=== PATIENT | male | born 1995 | race Caucasian/White ===

== ENCOUNTER 2020-02-07 11:42 | Emergency (ER) | payer SELFPAY ==
[~2020-02-07] VITALS: Ht 167.7 cm; Wt 72.5 kg
[~2020-02-07 11:42] MED LIST: AMOX500C2 PO; MECL-149 PO; OMEP20CA18; ONDA4TAB8 PO
--- NOTE | 2020-02-07 12:21 | ED Abdominal Pain ---
General Chief Complaint: Abdominal/GI Problems Stated Complaint: NAUSEA,VOMITING,ABD PAIN Nursing Triage Note: Pt reports epigastric pain that is worse with caffeine, meals and lifting. Pt reports nausea and vomiting of acid. Pt reports the pain causes gagging and is worse when lifiting heavy items. Sepsis Screen: No Definite Risk History of Present Illness Date Seen by Provider: Feb 07, 2020 Time Seen by Provider: 12:05 Initial Comments This is a well-appearing 24-year-old male who presents to the ER with complaints of epigastric pain times one week. Currently rates 6/10, constan, sharp, and is localized to his epigastric region. States occasionally after eating he will have a burning sensation in his throat. Denies any alleviating factors. Worse when he bends over. No OTC or prescription medications. Denies fevers, chills, cough, shortness of breath, chest pain, nausea, vomiting, diarrhea. Timing/Duration: 1 Week Severity/Quality: Moderate Location: Epigastric Radiation: No Radiation Activities at Onset: None Allergies and Home Medications Allergies Coded Allergies: No Known Drug Allergies (Unverified , 09/03/15) Home Medications Amoxicillin 500 Mg Capsule, 1,000 MG PO TID Prescribed by: ROMELIA FELDMAN on 09/06/15 1439 Famotidine 20 Mg Tablet, 20 MG PO BID Prescribed by: POLINA SANDHU on 02/07/20 1328 Meclizine HCl 25 Mg Tablet, 25 MG PO for DIZZINESS, (Reported) Patient Home Medication List Home Medication List Reviewed: Yes Review of Systems Review of Systems Constitutional: no symptoms reported EENTM: No Symptoms Reported Respiratory: No Symptoms Reported Cardiovascular: No Symptoms Reported Gastrointestinal: See HPI Genitourinary: No Symptoms Reported Musculoskeletal: no symptoms reported Skin: no symptoms reported Psychiatric/Neurological: No Symptoms Reported Endocrine: No Symptoms Reported Hematologic/Lymphatic: No Symptoms Reported Past Gariwxn-Zhwdmi-Hfczgz Hx Patient Social History Alcohol Use: Occasionally Uses Recreational Drug Use: No 2nd Hand Smoke Exposure: No Recent Foreign Travel: No Contact w/Someone Who Travel: No Recent Infectious Disease Expo: No Recent Hopitalizations: No Immunizations Up To Date Tetanus Booster (TDap): More than 5yrs PED Vaccines UTD: No Seasonal Allergies Seasonal Allergies: No Past Medical History Surgeries: No Respiratory: No Cardiac: No Neurological: No Reproductive Disorders: No Gastrointestinal: No Musculoskeletal: No Endocrine: No Cancer: No Psychosocial: No Integumentary: No Blood Disorders: No Adverse Reaction/Blood Tranf: No Family Medical History No Pertinent Family Hx Physical Exam Vital Signs Vital Signs - First Documented 02/07/20 11:48 Temp 36.7 Pulse 85 Resp 10 B/P (MAP) 127/77 (94) Pulse Ox 97 O2 Delivery Room Air Capillary Refill : Less Than 3 Seconds Height/Weight/BMI Height: 5'4" Weight: 150lbs. oz. 68.178547ts; 25.00 BMI Method:Estimated General Appearance: WD/WN, no apparent distress HEENT: normal ENT inspection, pharynx normal Neck: full range of motion, normal inspection Respiratory: lungs clear, normal breath sounds Cardiovascular: regular rate, rhythm, no murmur Gastrointestinal: normal bowel sounds, soft, guarding, other (tenderness in epigastric region with light/deep palpation ) Extremities: normal range of motion, non-tender, normal inspection Back: normal inspection Neurologic/Psychiatric: no motor/sensory deficits, alert, normal mood/affect, oriented x 3 Skin: normal color, warm/dry Progress/Results/Core Measures Results/Orders Lab Results Laboratory Tests Test 02/07/20 12:32 02/07/20 12:35 Range/Units Urine Color YELLOW Urine Clarity CLEAR Urine pH 7.0 5-9 Urine Specific [place] 1.015 L 1.016-1.022 Urine Protein NEGATIVE NEGATIVE Urine Glucose (UA) NEGATIVE NEGATIVE Urine Ketones NEGATIVE NEGATIVE Urine Nitrite NEGATIVE NEGATIVE Urine Bilirubin NEGATIVE NEGATIVE Urine Urobilinogen 0.2 < = 1.0 MG/DL Urine Leukocyte Esterase NEGATIVE NEGATIVE Urine RBC (Auto) NEGATIVE NEGATIVE Urine RBC NONE /HPF Urine WBC 2-5 /HPF Urine Squamous Epithelial Cells NONE /HPF Urine Crystals NONE /LPF Urine Bacteria TRACE /HPF Urine Casts NONE /LPF Urine Mucus MODERATE H /LPF Urine Culture Indicated NO White Blood Count 6.0 4.3-11.0 10^3/uL Red Blood Count 5.57 H 4.30-5.52 10^6/uL Hemoglobin 17.8 H 13.3-17.7 g/dL Hematocrit 50 40-54 % Mean Corpuscular Volume 89 80-99 fL Mean Corpuscular Hemoglobin 32 25-34 pg Mean Corpuscular Hemoglobin Concent 36 32-36 g/dL Red Cell Distribution Width 11.6 10.0-14.5 % Platelet Count 282 130-400 10^3/uL Mean Platelet Volume 9.1 9.0-12.2 fL Immature Granulocyte % (Auto) 1 % Neutrophils (%) (Auto) 64 42-75 % Lymphocytes (%) (Auto) 25 12-44 % Monocytes (%) (Auto) 9 0-12 % Eosinophils (%) (Auto) 1 0-10 % Basophils (%) (Auto) 0 0-10 % Neutrophils # (Auto) 3.8 1.8-7.8 10^3/uL Lymphocytes # (Auto) 1.5 1.0-4.0 10^3/uL Monocytes # (Auto) 0.5 0.0-1.0 10^3/uL Eosinophils # (Auto) 0.1 0.0-0.3 10^3/uL Basophils # (Auto) 0.0 0.0-0.1 10^3/uL Immature Granulocyte # (Auto) 0.0 0.0-0.1 10^3/uL Sodium Level 138 135-145 MMOL/L Potassium Level 3.5 L 3.6-5.0 MMOL/L Chloride Level 101 98-107 MMOL/L Carbon Dioxide Level 33 H 21-32 MMOL/L Anion Gap 4 L 5-14 MMOL/L Blood Urea Nitrogen 12 7-18 MG/DL Creatinine 0.82 0.60-1.30 MG/DL Estimat Glomerular Filtration Rate > 60 BUN/Creatinine Ratio 15 Glucose Level 98 70-105 MG/DL Calcium Level 9.4 8.5-10.1 MG/DL Corrected Calcium 8.5-10.1 MG/DL Total Bilirubin 1.3 H 0.1-1.0 MG/DL Aspartate Amino Transf (AST/SGOT) 31 5-34 U/L Alanine Aminotransferase (ALT/SGPT) 52 0-55 U/L Alkaline Phosphatase 99 40-136 U/L Troponin I < 0.028 <0.028 NG/ML Total Protein 7.6 6.4-8.2 GM/DL Albumin 4.8 H 3.2-4.5 GM/DL Lipase 24 8-78 U/L My Orders Orders - POLINA SANDHU FINANCIAL REPORTING ANALYST Cbc With Automated Diff (02/07/20 12:23) Chest 1 View, Ap/Pa Only (02/07/20 12:23) Ekg Tracing (02/07/20 12:23) Comprehensive Metabolic Panel (02/07/20 12:23) Lipase (02/07/20 12:23) Troponin I (02/07/20 12:23) Ua Culture If Indicated (02/07/20 12:23) Lidocaine 2% Viscous 15 Ml (Xylocaine Vi (02/07/20 13:30) Antacid Suspension (Mylanta Suspension (02/07/20 13:30) Medications Given in ED Current Medications Medications Dose Ordered Sig/Kasie Route Start Time Stop Time Status Last Admin Dose Admin Al Hydrox/Mg Hydrox/Simethicone 30 ml ONCE ONCE PO 02/07/20 13:30 02/07/20 13:31 DC 02/07/20 13:31 30 ML Lidocaine HCl 15 ml ONCE ONCE PO 02/07/20 13:30 02/07/20 13:31 DC 02/07/20 13:31 15 ML Vital Signs/I&O 02/07/20 02/07/20 11:48 14:12 Temp 36.7 36.7 Pulse 85 70 Resp 10 10 B/P (MAP) 127/77 (94) 112/66 (94) Pulse Ox 97 97 O2 Delivery Room Air Room Air Blood Pressure Mean: 94 Progress Progress Note : Progress Note Cardiac workup negative. Chest x-ray shows no acute diagnosis. Given GI cocktail which improved symptoms. Reviewed discharge plan of care and he is agreeable with plan. Initial ECG Impression Date: Feb 07, 2020 Initial ECG Impression Time: 12:23 Initial ECG Rate: 72 Initial ECG Rhythm: Normal Sinus Initial ECG Intervals: Normal Initial ECG Impression: Normal Diagnostic Imaging Diagonstic Imaging: Xray Plain Films/CT/US/NM/MRI: chest Comments NAME: ZANDRA DRAKE [facility] REC#: [id number] PT STATUS: REG ER : 1995 PHYSICIAN: POLINA SANDHU APRN ADMIT DATE: 02/07/20/ER Draft Date of Exam:02/07/20 CHEST 1 VIEW, AP/PA ONLY Clinical indication: Patient epigastric pain which is worse with caffeine, meals, and lifting. Exam: Portable chest x-ray upright view. Comparisons: None. Findings: Lungs/pleura: Lungs are clear. There is no pneumothorax. There is no pleural effusion. Mediastinum: Unremarkable. Pulmonary vasculature: Unremarkable. Heart: Unremarkable. Bones/extrathoracic soft tissue: Unremarkable. Impression: There is no radiographic evidence of acute cardiopulmonary process. Dictated on workstation # [id number] Dict: 02/07/20 1301 Trans: 02/07/20 1303 [id number] Interpreted by: ANN SCHUMACHER MD Electronically signed by: Departure Impression Primary Impression: Abdominal pain Disposition: HOME, SELF-CARE Condition: Improved Departure-Patient Inst. Decision time for Depature: 13:20 Referrals: NO,LOCAL PHYSICIAN (PCP/Family) Primary Care Physician Patient Instructions: Gastritis (DC) Add. Discharge Instructions: Plan: 1. Discharge home. 2. Take Famotidine 20mg by mouth for two weeks. 3. Establish with a primary care provider as soon as you are able. 4. Return high fevers, persistent pain or any other new or concerning symptoms. All discharge instructions reviewed with patient and/or family. Voiced understanding. Scripts Famotidine (Pepcid) 20 Mg Tablet 20 MG PO BID for 14 Days, #30 TAB 0 Refills Prov: POLINA SANDHU FINANCIAL REPORTING ANALYST 02/07/20 POLINA SANDHU FINANCIAL REPORTING ANALYST Feb 07, 2020 12:21
[2020-02-07 12:40] LABS: BILIRUBIN,URINE NEGATIVE (NEGATIVE); CLARITY,URINE CLEAR; COLOR,URINE YELLOW; GLUCOSE, URINE (UA) NEGATIVE (NEGATIVE); KETONES,URINE NEGATIVE (NEGATIVE); LEUKOCYTE ESTERASE ,URINE NEGATIVE (NEGATIVE); NITRITE,URINE NEGATIVE (NEGATIVE); PROTEIN,URINE NEGATIVE (NEGATIVE)
[2020-02-07 12:47] LABS: BASOPHILS % (AUTO) 0 % (0-10); EOSINOPHILS # (AUTO) 0.1 10^3/uL (0.0-0.3); EOSINOPHILS % (AUTO) 1 % (0-10); HEMATOCRIT 50 % (40-54); HEMOGLOBIN 17.8 g/dL (13.3-17.7); LYMPHOCYTES # (AUTO) 1.5 10^3/uL (1.0-4.0); LYMPHOCYTES % (AUTO) 25 % (12-44); MEAN CORPUSCULAR HEMOGLOBIN 32 pg (25-34); MEAN CORPUSCULAR HGB CONC 36 g/dL (32-36); MEAN CORPUSCULAR VOLUME 89 fL (80-99); MEAN PLATELET VOLUME 9.1 fL (9.0-12.2); MONOCYTES # (AUTO) 0.5 10^3/uL (0.0-1.0); MONOCYTES % (AUTO) 9 % (0-12); NEUTROPHILS # (AUTO) 3.8 10^3/uL (1.8-7.8); NEUTROPHILS % (AUTO) 64 % (42-75); PLATELET COUNT 282 10^3/uL (130-400)
[2020-02-07 12:51] LABS: BACTERIA,URINE TRACE /HPF
--- NOTE | 2020-02-07 13:03 | Diagnostic Imaging Report ---
Clinical indication: Patient epigastric pain which is worse with caffeine, meals, and lifting. Exam: Portable chest x-ray upright view. Comparisons: None. Findings: Lungs/pleura: Lungs are clear. There is no pneumothorax. There is no pleural effusion. Mediastinum: Unremarkable. Pulmonary vasculature: Unremarkable. Heart: Unremarkable. Bones/extrathoracic soft tissue: Unremarkable. Impression: There is no radiographic evidence of acute cardiopulmonary process. Dictated by: Dictated on workstation # [id number]
[2020-02-07 13:17] LABS: ALANINE AMINOTRANSFERASE 52 U/L (0-55); ALBUMIN 4.8 GM/DL (3.2-4.5); ALKALINE PHOSPHATASE 99 U/L (40-136); BILIRUBIN,TOTAL 1.3 MG/DL (0.1-1.0); BUN/CREATININE RATIO 15; CALCIUM 9.4 MG/DL (8.5-10.1); CARBON DIOXIDE 33 MMOL/L (21-32); CHLORIDE 101 MMOL/L (98-107); CREATININE SERUM 0.82 MG/DL (0.60-1.30); GFR ESTIMATED > 60; GLUCOSE 98 MG/DL (70-105); LIPASE 24 U/L (8-78); POTASSIUM 3.5 MMOL/L (3.6-5.0); SODIUM 138 MMOL/L (135-145); TOTAL PROTEIN 7.6 GM/DL (6.4-8.2)
[2020-02-07] MEDS ORDERED: FAMO-119 PO (13:28)
[2020-02-07] MEDS ORDERED: ANTACID SUSP 30 ML UDC (MYLANTA) PO ONE (13:30)
[2020-02-07] MEDS ORDERED: LIDOCAINE 2% VISCOUS 15 ML UDC PO ONE (13:30)
[2020-02-07 14:12] VITALS: BP 112/66
== END 2020-02-07 14:12 | disposition home or self-care (01) ==
LOC: EDUNIT# 11:42 → ER 11:45
DX: R10.13 Epigastric pain (principal)
CPT/HCPCS: 36415; 71045; 80053; 81000; 83690; 84484; 85025; 93005

== ENCOUNTER 2022-01-15 09:12 | Emergency (ER) | payer BC ==
[~2022-01-15] VITALS: Ht 165 cm; Wt 74.8 kg
[~2022-01-15 09:12] MED LIST changes: +FAMO-119 PO
[2022-01-15] MEDS ORDERED: MECLIZINE 25 MG (ANTIVERT) TAB PO ONE (12:00)
[2022-01-15] MEDS ORDERED: MECL-149 PO (12:18)
--- NOTE | 2022-01-15 12:18 | ED EENT ---
History of Present Illness General Chief Complaint: Ear Problems Stated Complaint: DIZZINESS Nursing Triage Note: LEFT EAR PAIN AND DIZZINESS STARTED LAST NIGHT Source: patient Exam Limitations: no limitations History of Present Illness Date Seen by Provider: Jan 15, 2022 Time Seen by Provider: 11:19 Allergies and Home Medications Allergies Coded Allergies: No Known Drug Allergies (Unverified , 01/15/22) Patient Home Medication List Amoxicillin (Amoxicillin) 500 Mg Capsule, 1,000 MG PO TID Prescribed by: ROMELIA FELDMAN on 09/06/15 1439 Famotidine (Pepcid) 20 Mg Tablet, 20 MG PO BID Prescribed by: POLINA SANDHU on 02/07/20 1328 Meclizine HCl (Meclizine HCl) 25 Mg Tablet, 25 MG PO for DIZZINESS, (Reported) Entered as Reported by: ENMA RAMIREZ on 09/06/15 1251 Meclizine HCl (Meclizine HCl) 25 Mg Tablet, 25 MG PO BID PRN Prescribed by: POLINA SANDHU on 01/15/22 1218 Past Cceobaq-Rjyjmh-Qwoumd Hx Patient Social History Tobacco Use?: No Use of E-Cig and/or Vaping dev: No Substance use?: No Alcohol Use?: No Pt feels they are or have been: No Immunizations Up To Date Tetanus Booster (TDap): More than 5yrs PED Vaccines UTD: No Influenza Vaccine Up-to-Date: No; Not Current First/Initial COVID19 Vaccinat: NO VAC Seasonal Allergies Seasonal Allergies: No Past Medical History Surgery/Hospitalization HX: DENIES Surgeries: No Respiratory: No Cardiac: No Neurological: No Reproductive Disorders: No Gastrointestinal: No Musculoskeletal: No Endocrine: No Cancer: No Psychosocial: No Integumentary: No Blood Disorders: No Adverse Reaction/Blood Tranf: No Family Medical History No Pertinent Family Hx Physical Exam Vital Signs Vital Signs - First Documented 01/15/22 09:32 Temp 36.5 Pulse 75 Resp 18 B/P (MAP) 116/73 (87) Pulse Ox 97 O2 Delivery Room Air Height, Weight, BMI Height: 5'4" Weight: 150lbs. oz. 68.145552ys; 27.00 BMI Method:Estimated Progress/Results/Core Measures Results/Orders My Orders Orders - POLINA SANDHU INTERNAL SALES ENGINEER Meclizine Tablet (Antivert Tablet) (01/15/22 12:00) Medications Given in ED Current Medications Medications Dose Ordered Sig/Kasie Route Start Time Stop Time Status Last Admin Dose Admin Meclizine HCl 25 mg ONCE ONCE PO 01/15/22 12:00 01/15/22 12:01 DC 01/15/22 12:11 25 MG Vital Signs/I&O 01/15/22 09:32 Temp 36.5 Pulse 75 Resp 18 B/P (MAP) 116/73 (87) Pulse Ox 97 O2 Delivery Room Air Blood Pressure Mean: 87 Departure Impression Primary Impression: BPPV (benign paroxysmal positional vertigo) Disposition: HOME, SELF-CARE Condition: Improved Departure-Patient Inst. Decision time for Depature: 12:12 Referrals: LY SELLERS MD, BRETT D DO NO,LOCAL PHYSICIAN (PCP) Primary Care Physician Patient Instructions: Vertigo ED Add. Discharge Instructions: Plan: 1. May take Meclizine up to twice a day as needed, morning and night. May cause drowsiness. 2. Follow up with Dr. Israel regarding your stomach ulcer. Information below. 3. It might not be easy but you should try to keep your head vertical for as lo ng as you can. Avoid exercises or activities that make you bend your neck or tilt your head. Stand right under the shower when taking a bath to avoid tilting your head back. Never let your head tilt back more than 30 degrees. 4. Do not sleep below 45 degrees for 24 hours. 5. Follow up with ENT Dr. Sellers if your symptoms persist. 6. Establish with primary care provider of your choice. 7. Return for any new, concerning, or worsening symptoms. All discharge instructions reviewed with patient and/or family. Voiced understanding. Scripts Meclizine HCl (Meclizine HCl) 25 Mg Tablet 25 MG PO BID PRN, #20 TAB Prov: POLINA SANDHU INTERNAL SALES ENGINEER 01/15/22 Work/School Note: Family Work Note, Patient Received Medical Care In the Emergency Department On: Jan 15, 2022 Patient Will Be Able to Return to Work/School On: Jan 17, 2022 Patient Restrictions: May return if dizziness is resolved. Spouse was present with patient in ED. Work Release Form Date Seen in the Emergency Department: Jan 15, 2022 Return to Work: Jan 17, 2022 Other Restrictions Listed Below: No dizziness for 24 hours. POLINA SANDHU INTERNAL SALES ENGINEER Jan 15, 2022 12:18
[2022-01-15 12:41] VITALS: BP 118/74
== END 2022-01-15 12:41 | disposition home or self-care (01) ==
LOC: EDUNIT# 09:12 → ER 09:17
DX: H81.12 Benign paroxysmal vertigo, left ear (principal); Z28.310 Unvaccinated for COVID-19
CPT/HCPCS: 99283

== ENCOUNTER 2022-01-23 05:34 | Outpatient (CLI) | payer BC ==
[~2022-01-23] VITALS: Ht 165.1 cm; Wt 74.8 kg
== END 2022-01-23 12:19 ==
LOC: PREOP 05:34
PROVIDERS: ATTEND Surgery
DX: Z01.818 Encounter for other preprocedural examination (principal); K21.9 Gastro-esophageal reflux disease without esophagitis

== ENCOUNTER 2022-02-05 07:16 | Day surgery (SDC) | payer BC ==
[~2022-02-05] VITALS: Ht 165.1 cm; Wt 74.8 kg
[2022-02-05] MEDS ORDERED: LACTATED RINGERS 1,000 ML IV STA (07:18)
[2022-02-05] MEDS ORDERED: HURRICAINE EXT TUBE (BENZOCAINE) XX PRN (07:30)
[2022-02-05 07:34] VITALS: BP 125/79
[2022-02-05] MEDS ORDERED: PROPOFOL INJECTION 50 ML IV ONE (07:37)
--- NOTE | 2022-02-05 07:48 | Progress Note-Pre Operative ---
Pre-Operative Progress Note Date of Available H&P: Jan 20, 2022 Date H&P Reviewed: Feb 05, 2022 Time H&P Reviewed: 07:48 History & Physical: H&P Reviewed, Patient Examed, No changes noted Pre-Operative Diagnosis: GERD, epigastric pain AURA MEEKS DO Feb 05, 2022 07:48
--- NOTE | 2022-02-05 07:58 | Anesthesia-General Post-Op ---
MAC Patient Condition Mental Status/LOC: Same as Preop Cardiovascular: Satisfactory Nausea/Vomiting: Absent Respiratory: Satisfactory Pain: Controlled Complications: Absent Post Op Complications Complications None Follow Up Care/Instructions Patient Instructions None needed. Anesthesiology Discharge Order Discharge Order Patient is doing well, no complaints, stable vital signs, no apparent adverse anesthesia problems. No complications reported per nursing. OPHELIA BURKETT CRNA Feb 05, 2022 07:58
[2022-02-05 08:00] VITALS: BP 92/50
[2022-02-05 08:05] VITALS: BP 96/54
[2022-02-05 08:15] VITALS: BP 99/55
[2022-02-05 08:30] VITALS: BP 101/60
[2022-02-05] MEDS ORDERED: PANT40TA2 PO (08:30)
--- NOTE | 2022-02-05 08:31 | Discharge Inst-Simple/Standard ---
Discharge Inst-Standard Discharge Medications New, Converted or Re-Newed RX: Transmitted to Pharmacy Patient Instructions/Follow Up Plan of Care/Instructions/FU: 2 WEEKS CONSTANTINO Activity as Tolerated: Yes Discharge Diet: Regular Diet AURA MEEKS DO Feb 05, 2022 08:31
[2022-02-05 09:11] VITALS: BP 101/60
--- NOTE | 2022-02-06 11:21 | OPERATIVE REPORT ---
DATE OF SERVICE: 02/05/2022 PREOPERATIVE DIAGNOSES: Gastroesophageal reflux disease, epigastric abdominal pain. POSTOPERATIVE DIAGNOSIS: Gastritis. PROCEDURE: EGD with biopsy. SURGEON: Aura Israel DO ANESTHESIA: Per OYSTER CULTURIST. ESTIMATED BLOOD LOSS: None. COMPLICATIONS: None. INDICATIONS: The patient is a 26-year-old male with GERD, epigastric abdominal pain. He understands risks and benefits of procedure and wishes to proceed. Consent was signed and on the chart. DESCRIPTION OF PROCEDURE: The patient was taken to the endoscopy suite, placed in left lateral recumbent position. Timeout was performed. Scope was inserted in the mouth, down the esophagus, stomach and into the duodenum without difficulty. There were no polyps, masses, ulcerations within the duodenum. Scope was slowly retracted back into the stomach, where it was further insufflated. Antral and body of the stomach had inflammatory changes. Biopsies of the antrum and body were obtained. Scope was retroflexed noting no other pathology. Scope was returned to its normal position and slowly withdrawn to distal esophagus, biopsy of the GE junction was obtained. No polyps, mass, or ulcerations. Scope was slowly retracted back until completely removed. The patient tolerated the procedure well without any complications. Patient will be started on Protonix 40 mg daily. He will follow up on biopsy in a couple of weeks. Any issues before that will be seen at that time. Further recommendations pending results. Job ID: [id number] DocumentID: [id number] Dictated Date: 02/05/2022 19:33:04 Electric Motorman Date: 02/06/2022 04:47:00 Dictated By: AURA ISRAEL DO
== END 2022-02-05 09:30 | disposition home or self-care (01) ==
LOC: ENDO 07:16
PROVIDERS: ATTEND Surgery
DX: K29.50 Unspecified chronic gastritis without bleeding (principal); K21.9 Gastro-esophageal reflux disease without esophagitis; Z28.310 Unvaccinated for COVID-19
CPT/HCPCS: 88305

== ENCOUNTER → 2022-04-07 | Outpatient (CLI) | payer BC ==
[~2022-04-07] MED LIST changes: +PANT40TA2 PO
== END ==
LOC: LAB 18:18
DX: A04.8 Other specified bacterial intestinal infections (principal)
CPT/HCPCS: 87338

== ENCOUNTER 2022-06-19 17:25 | Emergency (ER) | payer SELFPAY ==
[~2022-06-19] VITALS: Ht 165 cm; Wt 97.0 kg
[2022-06-19] MEDS ORDERED: FAMOTIDINE 20MG/2ML IV (PEPCID) IV STA (17:53)
[2022-06-19] MEDS ORDERED: diphenhydrAMINE 50 MG/ML INJ (BENADRYL) IVP ONE (18:00)
--- NOTE | 2022-06-19 18:01 | ED Integumentary General ---
General Chief Complaint: Allergic Reaction Stated Complaint: RASH/ALLERGIC REACTION Nursing Triage Note: PT HAS HAD DIARRHEA, PT TOOK A [place] DRUG CALLED [facility] FOR THE DIARRHEA AND DEVELOPED A RASH LATER. PT STATES HE ATE [facility] TODAY ALSO AND HAS HAD A COUGH SINCE. THIS HAS HAPPENED BEFORE WITH [facility]. Source: patient History of Present Illness Date Seen by Provider: June 19, 2022 Time Seen by Provider: 17:47 Initial Comments PT ARRIVES VIA POV C/O ITCHY RASH ALL OVER HIS BODY SINCE THIS MORNING NO SWELLING ANYWHERE NO DIFFICULTY TALKING OR SWALLOWING OR BREATHING. NO HISTORY OF SIMILAR PT STATES HE HAD A "STOMACH PROBLEM" ON THURSDAY--DIARRHEA AND ABDOMINAL CRAMPING. HE DENIES NAUSEA/VOMITING HE WENT TO [facility] ON THURSDAY OR THURSDAY AND WAS GIVEN RX FOR ZOFRAN PT STATES HE DID NOT TAKE ANY BECAUSE HE WAS NOT HAVING NAUSEA OR VOMITING HE TOOK LOPERAMIDE YESTERDAY MORNING--HAS TAKEN BEFORE WITHOUT PROBLEMS HE THEN TOOK MEDICATION FROM [facility]--GENERIC BACTRIM--HE TOOK 1 DOSE AT 0300 THIS MORNING--HE HAS TAKEN THAT BEFORE WITHOUT PROBLEMS. HE DID NOTICE LATER THAT THE MEDICATION 01/2022 HE ALSO ATE [facility] LAST NIGHT, AND AFTERWARDS HE HAD A SCRATCHY THROAT AND COUGH AND VOMITED--THIS WAS BEFORE HE TOOK THE BACTRIM HE STATES HE HAS HAD THOSE SAME SYMPTOMS BEFORE WHEN HE HAS EATEN [facility]. HE STILL HAS A SCRATCHY THROAT AND A SLIGHT COUGH HE IS NO LONGER HAVING THE GI ISSUES. HE HAS NOT TAKEN ANYTHING TODAY FOR HIS SYMPTOMS. HE DENIES ANY MEDICAL PROBLEMS AND DOES NOT TAKE ANY DAILY MEDICATIONS PCP: [facility] Allergies and Home Medications Allergies Coded Allergies: No Known Drug Allergies (Unverified , 01/15/22) Patient Home Medication List Home Medication List Reviewed: Yes Famotidine (Pepcid) 40 Mg Tablet, 40 MG PO DAILY Prescribed by: YASSINE LOMBARDO on 06/19/221854 Prednisone (Prednisone) 20 Mg Tab, 40 MG PO DAILY Prescribed by: YASSINE LOMBARDO on 06/19/221854 Discontinued Medications Meclizine HCl (Meclizine HCl) 25 Mg Tablet, 25 MG PO for DIZZINESS, (Reported) Discontinued Reason: No Longer Taking Entered as Reported by: ENMA RAMIREZ on 09/06/15 1251 Last Action: Discontinued Pantoprazole Sodium (Protonix) 40 Mg Tablet.dr, 40 MG PO DAILY Discontinued Reason: No Longer Taking Prescribed by: AURA MEEKS on 02/05/22 5730 Last Action: Discontinued Review of Systems Review of Systems Constitutional: no symptoms reported EENTM: see HPI Respiratory: see HPI Cardiovascular: no symptoms reported Gastrointestinal: see HPI Genitourinary: no symptoms reported Musculoskeletal: no symptoms reported Skin: see HPI Psychiatric/Neurological: No Symptoms Reported Endocrine: No Symptoms Reported Hematologic/Lymphatic: No Symptoms Reported Past Huseoti-Wwmkaw-Eciuuv Hx Patient Social History Tobacco Use?: No Substance use?: No Alcohol Use?: Yes Alcohol Frequency: Once in a while Immunizations Up To Date Tetanus Booster (TDap): More than 5yrs PED Vaccines UTD: No First/Initial COVID19 Vaccinat: NO VAC Second COVID19 Vaccination Yuri: NO VAC Third COVID19 Vaccination Date: NO VAC Seasonal Allergies Seasonal Allergies: No Past Medical History Surgery/Hospitalization HX: DENIES Surgeries: No Respiratory: No Cardiac: No Neurological: Yes (dizziness) Vertigo Reproductive Disorders: No Genitourinary: No Gastrointestinal: Yes Gastroesophageal Reflux Musculoskeletal: No Endocrine: No HEENT: No Cancer: No Psychosocial: No Integumentary: No Blood Disorders: No Adverse Reaction/Blood Tranf: No Family Medical History No Pertinent Family Hx Physical Exam Vital Signs Vital Signs - First Documented 06/19/22 17:38 Temp 36.6 Pulse 89 Resp 16 B/P (MAP) 117/77 (90) Pulse Ox 97 Capillary Refill : Less Than 3 Seconds General Appearance: WD/WN, no apparent distress HEENT: PERRL/EOMI, normal ENT inspection, pharynx normal, other (NO SWELLING TO LIPS OR TONGUE OR ORAL MUCOSA) Neck: normal inspection Cardiovascular: regular rate, rhythm Respiratory: normal breath sounds, no respiratory distress, no accessory muscle use Gastrointestinal: non tender, soft Extremities: normal inspection, normal capillary refill Neurologic/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 PALMS AND SOLES ARE SPARED, IS FACE. ) Progress/Results/Core Measures Results/Orders My Orders Orders - YASSINE LOMBARDO DO Ed Iv/Invasive Line Start (06/19/22 17:53) Famotidine Injection (Pepcid Injection) (06/19/22 17:53) Diphenhydramine Injection (Benadryl Inje (06/19/22 18:00) Dexamethasone Injection (Decadron Inje (06/19/22 18:15) Medications Given in ED Current Medications Medications Dose Ordered Sig/Kasie Route Start Time Stop Time Status Last Admin Dose Admin Diphenhydramine HCl 50 mg ONCE ONCE IVP 06/19/22 18:00 06/19/22 18:01 DC 06/19/22 18:10 50 MG Vital Signs/I&O 06/19/22 17:38 Temp 36.6 Pulse 89 Resp 16 B/P (MAP) 117/77 (90) Pulse Ox 97 Blood Pressure Mean: 90 Progress Progress Note : Progress Note PT STATES HE CAN CALL SOMEONE TO TAKE HIM HOME GIVEN: -BENADRYL -DECADRON -PEPCID SYMPTOMS IMPROVED / RESOLVED--ITCHING RESOLVED AND RASH IS GONE REVIEWED PRIOR RECORDS, ER VISITS, OUTPATIENT PROCEDURES DISCUSSED ANTICIPATED COURSE, SYMPTOMATIC TREATMENT, MEDICATIONS, NEED FOR FOLLOW UP AND RETURN PRECAUTIONS. Departure Impression Primary Impression: Hives of unknown origin Disposition: HOME, SELF-CARE Condition: Improved Departure-Patient Inst. Decision time for Depature: 18:52 Referrals: SAI KAYE DO [facility] Patient Instructions: Hives (DC) Add. Discharge Instructions: HOME, REST LOTS OF CLEAR LIQUIDS--WATER, BROTH, JELLO, GATORADE DO NOT TAKE ANY MEDICATION UNLESS IT IS PRESCRIBED TO YOU BY A DR. MAYE TAPIA. YOU MAY TAKE CLARITIN 10 MG IN THE MORNING NEEDED FOR RASH AND ITCHING, AND YOU MAY TAKE BENADRYL 50 MG IN EVENING NEEDED FOR RASH AND ITCHING RETURN TO ER IF YOUR SYMPTOMS WORSEN, OTHERWISE FOLLOW UP WITH [facility] [place] [facility] [place] IN 2-3 DAYS IF NO BETTER. All discharge instructions reviewed with patient and/or family. Voiced understanding. Scripts Famotidine (Pepcid) 40 Mg Tablet 40 MG PO DAILY, #10 TAB Prov: YASSINE LOMBARDO DO 06/19/22 Prednisone (Prednisone) 20 Mg Tab 40 MG PO DAILY, #6 TAB 0 Refills Prov: YASSINE LOMBARDO DO 06/19/22 YASSINE LOMBARDO DO June 19, 2022 18:01
[2022-06-19] MEDS ORDERED: dexAMETHasone INJECTION 20 MG in NS (IVPB) 50 ML IV NR (18:15)
[2022-06-19] MEDS ORDERED: PRD20T PO (18:55)
[2022-06-19] MEDS ORDERED: FAMO40TA72 PO (18:55)
[2022-06-19 19:48] VITALS: BP 107/60
== END 2022-06-19 19:48 | disposition home or self-care (01) ==
LOC: EDUNIT# 17:25 → ER 17:28
DX: L50.9 Urticaria, unspecified (principal); Z28.310 Unvaccinated for COVID-19